=== PATIENT | male | born 1980 | race Caucasian/White ===

== ENCOUNTER 2017-09-18 21:30 | Inpatient (IN) | payer MEDICAID, OTHER ==
[2017-09-18] MEDS ORDERED: OLANZapine DISINTEGR 5 MG TAB PO PRN (23:00)
[2017-09-18] MEDS ORDERED: MAGNESIUM HYDROXIDE 30 ML UDCUP PO PRN (23:00)
[2017-09-18] MEDS ORDERED: MELATONIN 3 MG TAB PO PRN (23:00)
[2017-09-18] MEDS ORDERED: MAG HYDROX/AL HYDROX/SIMETH 30 ML UDCUP PO PRN (23:00)
[2017-09-18] MEDS ORDERED: LORazepam 0.5 MG TAB PO PRN (23:00)
[2017-09-18] MEDS ORDERED: NICOTINE POLACRILEX 2 MG GUM B PRN (23:00)
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
--- NOTE | 2017-09-19 19:00 | PDHOSCONS ---
History and Physical - Chief Complaint drank a bottle of cough syrup - History of Present Illness Chief complaint: "drank a bottle of cough syrup" History of present illness: The patient is a 36-year-old male who was sent from [facility] ED after he attempted to consume a bottle of over the counter medication. He says he drank a bottle of cough syrup, but other records say he consumed Sudafed and aspirin. When asked why he consumed it, he says "I don't know." Patient denies any active medical issues. He denies any physical complaints at this time. Past medical history: Depression and anxiety Past surgical history: septoplasty. Medications: No medications. Allergies: No known allergies Social history: , has 2 children. Unemployed. Lives in [place]. Consumes marijuana regularly. Drinks alcohol 1 to 2 times a month, 2-3 drinks at a time. Denies other drugs. Denies smoking tobacco. Family history: healthy. Review of systems: 10 point review of systems was conducted and is negative except per HPI Physical exam: Vitals: Reviewed Gen - alert, in NAD. HEENT - NC, EOMI, Resp: unlabored, CTAB no RRW. CV: RRR no MRG. Abd: SND. MSK: nl muscle tone/bulk. Neuro: CN II-XII grossly intact. Psych: flat affect. Glum mood. Skin: no pallor. Multiple tattoos noted. Heme/lymph: no peripheral edema. Labs: Na 143 K 3.7 Cl 107 Co2 23 BUN 15 Cr 1.18 Glu 124 Ca 8.9 AG 17. Acetaminophen level <2. eGFR 78.4. Drug Screen - (+) cannabis. EtOH <3. Salicylate 0.2. AST 35 ALT 78 Tbil 0.8 Alk Phos 79 Alb 4.4. WBC 6.2 Hgb 17 Plt 169. Other Data: EKG report - NSR, nl EKG. Impression and plan: Suicide attempt/suicidal ideation Major depressive disorder with anxiety Drug [facility] -Pt has no active medical issues which need to be followed. -Continue therapy. -Thank you for the consultation. History Information - Allergies/Home Medication List Allergies/Adverse Reactions: No Known Allergies Allergy (Verified 09/19/17 10:04) Home Medications: NK [No Known Home Meds] 09/19/17 [Last Taken Unknown] I have personally reviewed and updated: family history, medical history, social history, surgical history - Social History Smoking Status: Never smoked Review of Systems Review of Systems: Physical Exam Physical Exam: Temp Pulse Resp BP Pulse Ox 36.5 C 62 15 131/74 H 95 09/19/17 06:00 09/19/17 06:00 09/18/17 21:35 09/19/17 06:00 09/18/17 21:35
[2017-09-20] MEDS: ACETAMINOPHEN 325 MG TAB PO PRN (11:14)
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
[2017-09-20] MEDS: VENLAFAXINE XR 37.5 MG CAP PO SCH (13:17)
[2017-09-21 06:26] VITALS: BP 146/66
[2017-09-21] MEDS: VENLAFAXINE XR 37.5 MG CAP PO SCH (08:36)
[2017-09-21] MEDS: ACETAMINOPHEN 325 MG TAB PO PRN (08:51)
--- NOTE | 2017-09-21 16:46 | BDS ---
[f rep st] BEHAVIORAL HEALTH DISCHARGE SUMMARY REASON FOR ADMISSION: Patient was admitted on a M1 Hold due to being a danger to himself. He took Advil and pseudoephedrine medication on 09/18/2017, after having an argument with his and he took this medication with an intent to hurt himself. For further information regarding reason for admission, please refer to admission psychiatric assessment dated 09/19/2017, completed by Dr. Acosta. ADMISSION DIAGNOSES: 1. Major depressive disorder, recurrent, severe. 2. Cannabis use disorder. ADMISSION PHYSICAL EXAMINATION /SUMMARY OF PERTINENT FINDINGS: Hospitalist H and P consult was dated 09/19/2017, ALLERGIES: Patient reported no known allergies. FAMILY HISTORY: Healthy. REVIEW OF SYSTEMS: 10-point review of systems was conducted and is negative. Patient has no active medical issues, which need to be followed. LABORATORY DATA: Admission labs per H and P consult dated 09/19/2017, please refer to labs for further details on this H and P consult. On 09/20/2017, hemoglobin A1c 4.7. Estimated average glucose 88. Patient's fasting lipid panel all within normal limits. HOSPITAL COURSE: The most prominent symptoms and behaviors while the patient was here were the following: depressed mood. MSE at time of admission: patient is an average height, well-developed, disheveled man sitting up in bed wearing T-shirt and pants. He has full sleeve tattoos on both of his arms. He has thinning hear. He is alert and oriented x4, though he is a bit sluggish and lethargic as he just woke up. His affect is sad. He described his mood as depressed. His speech rate is slow. Volume is low. His speech is halting and there is some response delay. His intellectual function appears to be average based upon his education, work history, fund of knowledge, and vocabulary. He does currently endorse feelings of sadness and depression, but he denies feeling helpless, hopeless, worthless, and denies having any thoughts , plans, or intents to hurt himself or anyone else at this time. He denies experiencing symptoms of psychosis, including denying auditory and visual hallucinations, paranoid ideas of reference, and any bizarre thoughts. He is not exhibiting any symptoms of jose. His thought process is linear and goal directed. His insight and judgment are both poor as evidenced by his recent suicide attempt. TARGET SYMPTOMS DURING HOSPITALIZATION: Depression. Treatment modalities were utilized as follows: Milieu and group therapy. Effexor XR 37.5 mg p.o. q.a.m. was started to target depression symptoms. Medication was tolerated with no reported side effects and with fair response for symptoms. Patient has improved considerably during his stay with no signs of psychiatric symptoms and no psychiatric symptoms expressed upon discharge. Patient reports he has improved since admission. States to be in stable condition. Feels safe to discharge and contracts for safety. Patient's response to treatment was good. There were no adverse or unexpected results of treatment. The patient was safe throughout his stay, active in treatment, engaged in groups, and was appropriate with staff and other patients. The treatment team's consensus is the patient is in stable condition and is safe discharge today. CONDITION AT DISCHARGE: Patient is in stable condition and is no longer a danger to self or others, and is not gravely disabled due to mental illness. Patient is no longer in need of inpatient level of care and can safely and effectively be treated within the community. The patient's level of risk at time of discharge is low based on the following risk assessment: Risk factors: Patient reports no history of suicide attempts. Reports past psychiatric disorders of being diagnosed with depression 10 years ago. Patient reports no thorpe symptoms and reports no family history of suicide or suicide attempts. Patient currently states no significant stressors. Change in treatment: Patient will be discharged from psychiatric hospital. Patient states that he does not have access to firearms. Patient's protective factors, include internal protective factor as coping skills he has acquired while being hospitalized here and he reports he plans to continue to practice using these coping skills after discharge. External protective factors: Patient reports his daughters and his . Patient reports no thoughts of suicide. No plan or intent, and is currently showing no signs or behaviors of suicidal ideation or self-injurious ideation at time of discharge. Patient's risk level is low due to having several protective factors, a few modifiable risk factors. Patient denies suicidal ideation and self-injurious ideation at time of discharge. Intervention for patient, include treatment plan to reduce symptoms. His treatment plan includes medications and therapy. Patient was provided emergency and crisis numbers, and has a followup plan for outpatient services. MENTAL STATUS EXAMINATION: The patient is casually dressed with good hygiene and looks stated age. Patient is sitting. Posture is upright and position is relaxed. Patient appears awake, alert, and responds appropriately and reasonably during interview. Patient is engaged, relates well to interviewer, and emotional facial expression is appropriate to situation and changes appropriately with topic. Patient is cooperative, makes comfortable eye contact , and movements are voluntary, deliberate, coordinated, and smooth and even with no inappropriate movements. Patient makes laryngeal sounds effortlessly and shares conversation appropriately. Pace of conversation is appropriate and stream of talking is fluent. Articulation is clear and understandable. Word choice is effortless and appropriate for education level. Patient complete sentences, occasionally pausing to think. Rate and volume are appropriate for interview and setting. The patient reports mood as euthymic. Patient's affect is stable with full and variable range, congruent with mood, and appropriate to speech and circumstances. The patient has linear and logical thinking with no loose associations, tangential thought, thought blocking, concrete thinking, or any other signs of formal thought disorder. Patient denies suicidal and homicidal ideation, and denies hallucinations and delusions. Patient appears to be a reliable historian with sound judgement and good insight into current condition. Patient has no apparent dysfunction in recent or remote memory noted , and no evidence of gross cognitive dysfunction noted at any point during the interview. DISCHARGE DIAGNOSES: 1. Major depressive disorder, recurrent, severe. 2. Cannabis use disorder. DISCHARGE MEDICATIONS: The patient was provided prescription for Effexor XR 37.5 mg p.o. daily #30 with no refills per patient request. DISPOSITION: Patient will be discharge today independently and voluntarily, and will go home with his . Patient's to pick him up at his discharge. FOLLOW UP: extrusion die coordinator reports the appropriate outpatient followup services have been established and outpatient appointments have been scheduled. The patient received written instructions with times and dates of outpatient followup appointments. The followup recommendations were provided to the patient at time of discharge: 1. Continue psychotropic medications as prescribed and attend outpatient appointments as scheduled. 2. Report any side effects to a psychiatric outpatient provider, primary care provider, or other healthcare professional. 3. Address any questions or problems concerning his psychotropic medications with an psychiatric outpatient provider, a primary care provider, or other healthcare professional. 4. Contact [facility] or [facility] or go to the nearest emergency room if you ever are a danger to yourself, others, or unable to care for yourself. 5. As soon as possible, establish a routine medication management treatment with a psychiatric provider, establish routine therapy appointments, and follow up with a primary care provider. LEGAL COURSE: Patient was admitted on a M1 hold and became voluntary during his stay and will be discharge today independently and voluntarily. ATTITUDE AT TIME OF DISCHARGE: The patient's attitude was positive at time of discharge, and patient reports looking forward to discharging today. The patient reports he is safe to discharge and is no longer a danger to himself, others, and is in stable condition and patient contracts for safety. Patient states he will continue medications as prescribed and established medication management treatment with an outpatient provider after discharge. The patient reports he understands the information that has been provided to him, and he understands, accepts, and agrees to psychotropic medications. Patient reports internal protective factors as the coping skills he has learned while hospitalized here and he plans to continue to practice these coping skills after discharge. The patient reports external protective factors as his daughters and his . Patient describes looking forward to discharging today to see his niece, spend time with his daughters, and looks forward to doing stuff outdoors now that it is summer time. Patient describes future plans as continuing to work on the relationship with his . Patient reports his family looks forward to him discharging today. Patient's reports patient has a safe plan and states he is safe to discharge today. Patient's met with patient and this interviewer prior to patient's discharge and she reports he has improved since his admission, is in stable condition, is safe to discharge, and she agrees to him discharging today. She states she looks forward to him discharging this afternoon, and plans to pick him up when he discharges. She plans to continue to support him in his treatment. Patient reports he completed Wellness and Safety Plans. PENDING LAB/STUDIES: There were no labs or studies pending at the time of discharge. The following psychotropic medication treatment informed consent and recommendations were provided to the patient at time of discharge. Patient reports he understands, accepts, and agrees to the information that has been provided. PSYCHOTROPIC MEDICATION TREATMENT INFORMED CONSENT and RECOMMENDATIONS: Review nature of condition, diagnosis, and prognosis. Review nature and purpose of psychotropic medication treatment. Review type of psychotropic medications being prescribed. Review risk and benefits of psychotropic medication treatment. Review probable length of time will need to take medications. Review risk and benefits of not undergoing psychotropic medication treatment. Review alternative treatments to psychotropic medications. Review psychotropic medications contraindications, side effects, and importance of reporting any side effects to a psychiatric provider, primary care provider, or other health resident care aide. Review importance of her asking a psychiatric provider or primary care provider any questions or problems concerning the psychotropic medications. Review safety plan and the importance to contact [facility] or [facility] , or go to the nearest emergency room, if ever a danger to yourself/others, or unable to care for yourself. Recommend upon discharge to establish routine medication management treatment with a psychiatric provider, establish routine therapy appointments, and follow-up with a primary care provider. Verify patient understands, accepts, and agrees to the information that has been provided. /[id number]
== END 2017-09-21 15:57 | disposition home or self-care (01) | DRG 885 ==
LOC: BBEH 21:30
PROVIDERS: ADMIT Psychiatry & Neurology Psychiatry; ATTEND Psychiatry & Neurology Psychiatry
DX: F33.2 Major depressive disorder, recurrent severe without psychotic features (principal); F12.90 Cannabis use, unspecified, uncomplicated